=== PATIENT | female | born 2000 | race Caucasian/White ===

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

== ENCOUNTER 2022-02-18 20:29 | Emergency (ER) | payer MEDICAID ==
[~2022-02-18] VITALS: Ht 165 cm; Wt 63.5 kg
[~2022-02-18 20:29] MED LIST changes: +ACHD5005 PO; +BENZ78AE5 TP; +DOCU100C37 PO; +FERR325T18 PO; +IBUP-844 PO; +PREN1TAB19 PO
[2022-02-18 20:45] VITALS: BP 120/78
--- NOTE | 2022-02-18 21:18 | ED General ---
General Chief Complaint: General Problems/Pain Stated Complaint: CHEST PAINS Nursing Triage Note: PT AMB TO TRIAGE WITH C/O LIRIANO, BODY ACHES THAT STARTED WEDNESDAY AND TODAY SHE STATES HER RIBS AND CHEST ARE HURTING WORSE Source of Information: Patient Exam Limitations: No Limitations History of Present Illness Date Seen by Provider: Feb 18, 2022 Allergies and Home Medications Allergies Coded Allergies: No Known Drug Allergies (Unverified , 06/07/10) Patient Home Medication List Benzocaine/Menthol (Dermoplast Pain Relieving [place]) 78 Gm Aerosol, 56 EA TP UD PRN for PAIN- SEE INSTRUCTIONS Prescribed by: JOE HARO on 03/05/211800 Docusate Sodium (Docusate Sodium) 100 Mg Capsule, 100 MG PO BID PRN for CONSTIPATION-1ST LINE Prescribed by: JOE HARO on 03/05/211800 Ferrous Sulfate (Ferrous Sulfate) 325 Mg Tablet, 325 MG PO DAILY, (Reported) Entered as Reported by: MARTY BOYER on 03/05/21 08 Hydrocodone Bit/Acetaminophen (HYDROcodone/APAP 5 MG/325 MG TAB) 1 Tab Tab, 1 EA PO Q4H PRN for PAIN-MODERATE (5-7) Prescribed by: JOE HARO on 03/05/211801 Ibuprofen (Ibu) 600 Mg Tablet, 600 MG PO Q6HR Prescribed by: JOE HARO on 03/05/211800 Levothyroxine Sodium (Levothyroxine Sodium) 100 Mcg Tablet, (Reported) Entered as Reported by: MITCHELL FERNANDEZ on 11/25/16 0230 Ondansetron (Ondansetron Odt) 4 Mg Tab.rapdis, 4 MG PO Q8H PRN for NAUSEA/VOMITING Prescribed by: HAYDE LANE on 05/02/18 0517 Vit/Iron Fumarate/FA ( Vitamins Tablet) 1 Each Tablet, 1 EACH PO DAILY, (Reported) Entered as Reported by: MARTY BOYER on 03/05/21 0802 Review of Systems Review of Systems Expected Date of Delivery: Sep 12, 2022 Past Manmety-Yptdho-Lefbss Hx Patient Social History Tobacco Use?: No Use of E-Cig and/or Vaping dev: No Substance use?: No Alcohol Use?: No Pt feels they are or have been: No Immunizations Up To Date Tetanus Booster (TDap): Less than 5yrs PED Vaccines UTD: Yes Influenza Vaccine Up-to-Date: Yes; Up-to-Date Seasonal Allergies Seasonal Allergies: Yes Past Medical History Surgery/Hospitalization HX: HYPOTHYROID L ANKLE SURGERY Surgeries: No Respiratory: Yes Asthma Cardiac: No Neurological: No Expected Date of Delivery: Sep 12, 2022 Reproductive Disorders: No Genitourinary: No Gastrointestinal: No Musculoskeletal: Yes Scoliosis, Chronic Back Pain Endocrine: Yes Hypothyroidsim HEENT: No Cancer: No Psychosocial: No Integumentary: No Blood Disorders: No Physical Exam Vital Signs Vital Signs - First Documented 02/18/22 20:40 Temp 36.7 Pulse 70 Resp 14 B/P (MAP) 123/77 (92) Capillary Refill : Height, Weight, BMI Height: 5'3.00" Weight: 140lbs. oz. 63.437762rv; 23.00 BMI Method:Stated Procedures/Interventions Suture Size: 4-0 Progress/Results/Core Measures Suspected Sepsis SIRS Temperature: Pulse: 70 Respiratory Rate: 14 Laboratory Tests 02/18/22 22:00: White Blood Count 5.5 Blood Pressure 123 /77 Mean: 92 Laboratory Tests 02/18/22 22:00: Creatinine 0.67, Platelet Count 98L, Total Bilirubin 0.3 Results/Orders Lab Results Laboratory Tests Test 02/18/22 21:12 02/18/22 21:50 02/18/22 22:00 Range/Units Influenza Type A (RT-PCR) Not Detected Not Detecte Influenza Type B (RT-PCR) Not Detected Not Detecte SARS-CoV-2 RNA (RT-PCR) Not Detected Not Detecte Urine Color YELLOW Urine Clarity CLEAR Urine pH 6.0 5-9 Urine Specific [place] >=1.030 1.016-1.022 Urine Protein NEGATIVE NEGATIVE Urine Glucose (UA) NEGATIVE NEGATIVE Urine Ketones NEGATIVE NEGATIVE Urine Nitrite NEGATIVE NEGATIVE Urine Bilirubin NEGATIVE NEGATIVE Urine Urobilinogen 0.2 < = 1.0 MG/DL Urine Leukocyte Esterase NEGATIVE NEGATIVE Urine RBC (Auto) NEGATIVE NEGATIVE Urine RBC RARE /HPF Urine WBC NONE /HPF Urine Squamous Epithelial Cells 0-2 /HPF Urine Crystals NONE /LPF Urine Bacteria TRACE /HPF Urine Casts NONE /LPF Urine Mucus SMALL H /LPF Urine Culture Indicated NO White Blood Count 5.5 4.3-11.0 10^3/uL Red Blood Count 4.09 3.80-5.11 10^6/uL Hemoglobin 12.1 11.5-16.0 g/dL Hematocrit 36 35-52 % Mean Corpuscular Volume 87 80-99 fL Mean Corpuscular Hemoglobin 30 25-34 pg Mean Corpuscular Hemoglobin Concent 34 32-36 g/dL Red Cell Distribution Width 12.5 10.0-14.5 % Platelet Count 98 L 130-400 10^3/uL Mean Platelet Volume 10.6 9.0-12.2 fL Immature Granulocyte % (Auto) 0 % Neutrophils (%) (Auto) 58 42-75 % Lymphocytes (%) (Auto) 31 12-44 % Monocytes (%) (Auto) 9 0-12 % Eosinophils (%) (Auto) 1 0-10 % Basophils (%) (Auto) 1 0-10 % Neutrophils # (Auto) 3.2 1.8-7.8 10^3/uL Lymphocytes # (Auto) 1.7 1.0-4.0 10^3/uL Monocytes # (Auto) 0.5 0.0-1.0 10^3/uL Eosinophils # (Auto) 0.1 0.0-0.3 10^3/uL Basophils # (Auto) 0.0 0.0-0.1 10^3/uL Immature Granulocyte # (Auto) 0.0 0.0-0.1 10^3/uL Percent Immature Platelet Fraction 9.5 H 0.0-7.6 % Sodium Level 135 135-145 MMOL/L Potassium Level 3.8 3.6-5.0 MMOL/L Chloride Level 104 98-107 MMOL/L Carbon Dioxide Level 18 L 21-32 MMOL/L Anion Gap 13 5-14 MMOL/L Blood Urea Nitrogen 11 7-18 MG/DL Creatinine 0.67 0.60-1.30 MG/DL Estimat Glomerular Filtration Rate 129 BUN/Creatinine Ratio 16 Glucose Level 80 70-105 MG/DL Calcium Level 9.1 8.5-10.1 MG/DL Corrected Calcium 9.0 8.5-10.1 MG/DL Total Bilirubin 0.3 0.1-1.0 MG/DL Aspartate Amino Transf (AST/SGOT) 16 5-34 U/L Alanine Aminotransferase (ALT/SGPT) 12 0-55 U/L Alkaline Phosphatase 43 40-136 U/L Troponin I < 0.028 <0.028 NG/ML Total Protein 6.8 6.4-8.2 GM/DL Albumin 4.1 3.2-4.5 GM/DL My Orders Orders - ILIANA LUNDBERG SUPERVISOR PLEATING Covid 19 Inhouse Test (02/18/22 21:06) Influenza A And B By Pcr (02/18/22 21:06) Ua Culture If Indicated (02/18/22 21:33) Ekg Tracing (02/18/22 21:34) Cbc With Automated Diff (02/18/22 21:54) Comprehensive Metabolic Panel (02/18/22 21:54) Troponin I [place] (02/18/22 21:54) Vital Signs/I&O 02/18/22 20:40 Temp 36.7 Pulse 70 Resp 14 B/P (MAP) 123/77 (92) Capillary Refill : Blood Pressure Mean: 92 Departure Impression Primary Impression: Body aches Disposition: 01 HOME, SELF-CARE Condition: Improved Departure-Patient Inst. Decision time for Depature: 22:51 Referrals: NO,LOCAL PHYSICIAN (PCP) Primary Care Physician VIOLETA CONNOR (Family) Primary Care Physician Patient Instructions: Muscle Strain Add. Discharge Instructions: Plan: 1. Keep follow-up with your MANUFACTURING SUPERVISOR as previously directed. 2. If you have persistent symptoms you can follow-up with your primary care provider, you need to call to schedule an appointment. 3. Return to the ER if you have any new, concerning, worsening symptoms. All discharge instructions reviewed with patient and/or family. Voiced understanding. ILIANA LUNDBERG APRN Feb 18, 2022 21:17
[2022-02-18 22:00] LABS: BILIRUBIN,URINE NEGATIVE (NEGATIVE); CLARITY,URINE CLEAR; COLOR,URINE YELLOW; GLUCOSE, URINE (UA) NEGATIVE (NEGATIVE); KETONES,URINE NEGATIVE (NEGATIVE); LEUKOCYTE ESTERASE ,URINE NEGATIVE (NEGATIVE); NITRITE,URINE NEGATIVE (NEGATIVE); PROTEIN,URINE NEGATIVE (NEGATIVE)
[2022-02-18 22:10] LABS: BASOPHILS % (AUTO) 1 % (0-10); EOSINOPHILS # (AUTO) 0.1 10^3/uL (0.0-0.3); EOSINOPHILS % (AUTO) 1 % (0-10); HEMATOCRIT 36 % (35-52); HEMOGLOBIN 12.1 g/dL (11.5-16.0); LYMPHOCYTES # (AUTO) 1.7 10^3/uL (1.0-4.0); LYMPHOCYTES % (AUTO) 31 % (12-44); MEAN CORPUSCULAR HEMOGLOBIN 30 pg (25-34); MEAN CORPUSCULAR HGB CONC 34 g/dL (32-36); MEAN CORPUSCULAR VOLUME 87 fL (80-99); MEAN PLATELET VOLUME 10.6 fL (9.0-12.2); MONOCYTES # (AUTO) 0.5 10^3/uL (0.0-1.0); MONOCYTES % (AUTO) 9 % (0-12); NEUTROPHILS # (AUTO) 3.2 10^3/uL (1.8-7.8); NEUTROPHILS % (AUTO) 58 % (42-75); PLATELET COUNT 98 10^3/uL (130-400); WHITE BLOOD COUNT 5.5 10^3/uL (4.3-11.0)
[2022-02-18 22:11] LABS: BACTERIA,URINE TRACE /HPF; RBC,URINE RARE /HPF
[2022-02-18 22:12] LABS: SQUAMOUS EPITHELIAL CELL,UR 0-2 /HPF
[2022-02-18 22:20] LABS: ALBUMIN 4.1 GM/DL (3.2-4.5); CHLORIDE 104 MMOL/L (98-107); POTASSIUM 3.8 MMOL/L (3.6-5.0); SODIUM 135 MMOL/L (135-145)
[2022-02-18 22:21] LABS: CALCIUM 9.1 MG/DL (8.5-10.1)
[2022-02-18 22:22] LABS: GLUCOSE 80 MG/DL (70-105); TOTAL PROTEIN 6.8 GM/DL (6.4-8.2)
[2022-02-18 22:23] LABS: CARBON DIOXIDE 18 MMOL/L (21-32)
[2022-02-18 22:24] LABS: BILIRUBIN,TOTAL 0.3 MG/DL (0.1-1.0)
[2022-02-18 22:25] LABS: ALKALINE PHOSPHATASE 43 U/L (40-136)
[2022-02-18 22:26] LABS: CREATININE SERUM 0.67 MG/DL (0.60-1.30); GFR ESTIMATED 129
[2022-02-18 22:27] LABS: BUN/CREATININE RATIO 16
[2022-02-18 22:29] LABS: ALANINE AMINOTRANSFERASE 12 U/L (0-55)
== END 2022-02-18 20:45 | disposition home or self-care (01) ==
LOC: EDUNIT# 20:29 → ER 20:31
DX: R51.9 Headache, unspecified (principal); R07.9 Chest pain, unspecified; R07.81 Pleurodynia; Z20.822 Contact with and (suspected) exposure to COVID-19; Z28.310 Unvaccinated for COVID-19
CPT/HCPCS: 36415; 80053; 81000; 84484; 85025; 87636; 93005

== ENCOUNTER → 2022-03-12 | Outpatient (CLI) | payer BC, MEDICAID ==
[~2022-03-12] VITALS: Ht 165.1 cm; Wt 63.6 kg
[~2022-03-12] MED LIST changes: +IBUP-1773 PO
== END | disposition home or self-care (01) ==
LOC: PREOP 15:42
PROVIDERS: ATTEND Obstetrics & Gynecology
DX: Z01.818 Encounter for other preprocedural examination (principal)

== ENCOUNTER 2022-03-13 09:57 | Day surgery (SDC) | payer BC, MEDICAID ==
[2022-03-13] VITALS (10 sets, daily range): BP systolic 96–126; BP diastolic 58–86
[~2022-03-13 09:57] MED LIST changes: -IBUP-1773 PO
[2022-03-13 10:43] LABS: BASOPHILS % (AUTO) 0 % (0-10); EOSINOPHILS # (AUTO) 0.1 10^3/uL (0.0-0.3); EOSINOPHILS % (AUTO) 2 % (0-10); HEMATOCRIT 38 % (35-52); LYMPHOCYTES # (AUTO) 1.5 10^3/uL (1.0-4.0); LYMPHOCYTES % (AUTO) 24 % (12-44); MEAN CORPUSCULAR HEMOGLOBIN 29 pg (25-34); MEAN CORPUSCULAR HGB CONC 34 g/dL (32-36); MEAN CORPUSCULAR VOLUME 87 fL (80-99); MONOCYTES # (AUTO) 0.5 10^3/uL (0.0-1.0); MONOCYTES % (AUTO) 8 % (0-12); NEUTROPHILS # (AUTO) 4.1 10^3/uL (1.8-7.8); NEUTROPHILS % (AUTO) 66 % (42-75); PLATELET COUNT 197 10^3/uL (130-400); WHITE BLOOD COUNT 6.3 10^3/uL (4.3-11.0)
[2022-03-13] MEDS ORDERED: proPOfol 200 MG/20 ML (DIPRIVAN) VIAL IV ONE (10:57)
[2022-03-13] MEDS ORDERED: ONDANSETRON 4 MG/2 ML (SDV) Z0FRAN ONE (10:57)
[2022-03-13] MEDS ORDERED: MIDAZOLAM 2 MG/2 ML (VERSED) VIAL ONE (10:57)
[2022-03-13] MEDS ORDERED: SEVOFLURANE (ULTANE) 15 ML INHAL SOLN ONE ×2 (10:57→12:15)
[2022-03-13] MEDS ORDERED: LIDOCAINE PF 2% 5 ML (XYLOCAINE) VIAL ONE (10:57)
[2022-03-13] MEDS ORDERED: fentaNYL INJ 100 MCG/2 ML AMP ONE (10:57)
--- NOTE | 2022-03-13 11:28 | Progress Note-Pre Operative ---
Pre-Operative Progress Note Date of Available H&P: Mar 13, 2022 Date H&P Reviewed: Mar 13, 2022 Time H&P Reviewed: 11:20 History & Physical: H&P Reviewed, Patient Examed, No changes noted Pre-Operative Diagnosis: 11 week missed JOE Ye DO Mar 13, 2022 11:28
[2022-03-13] MEDS ORDERED: D5 LR IV SOLUTION 1,000 ML IV SCH (11:30)
[2022-03-13] MEDS ORDERED: KETOROLAC 30 MG/ML VIAL IVP ONE (11:30)
[2022-03-13] MEDS ORDERED: ONDANSETRON 4 MG/2 ML (SDV) Z0FRAN IVP PRN ×2 (11:30→12:30)
[2022-03-13] MEDS ORDERED: HYDROcodone/APAP 5 MG/325 MG (LORTAB) TAB PO PRN (11:30)
[2022-03-13] MEDS ORDERED: ACHD5005 PO (11:31)
[2022-03-13] MEDS ORDERED: IBUP-1773 PO (11:31)
[2022-03-13] MEDS ORDERED: METHYLERGONOVINE 0.2 MG/ML (METHERGINE) AMP ONE (12:02)
[2022-03-13] MEDS ORDERED: PHENYLEPHRINE 100 MCG/ML 10 ML (ANESTHESIA) SYR ONE (12:12)
[2022-03-13] MEDS ORDERED: KETOROLAC 30 MG/ML VIAL ONE (12:15)
[2022-03-13] MEDS ORDERED: HYDROmorphone 2 MG/ML VIAL (DILAUDID) IV ONE (12:30)
[2022-03-13] MEDS ORDERED: METHYLERGONOVINE 0.2 MG/ML (METHERGINE) AMP IM ONE (12:33)
[2022-03-13] MEDS ORDERED: LACTATED RINGERS 1,000 ML IV ONE (12:36)
--- NOTE | 2022-03-13 13:34 | Anesthesia-General Post-Op ---
General Patient Condition Mental Status/LOC: Same as Preop Cardiovascular: Satisfactory Nausea/Vomiting: Absent Respiratory: Satisfactory Pain: Controlled Complications: Absent Post Op Complications Complications None Follow Up Care/Instructions Patient Instructions None needed. Anesthesia/Patient Condition Patient Condition Patient is doing well, no complaints, stable vital signs, no apparent adverse anesthesia problems. No complications reported per nursing. D/C home per [facility] Criteria: Yes CRISTIANE ALLEN CRNA Mar 13, 2022 13:34
--- NOTE | 2022-03-14 02:37 | OPERATIVE REPORT ---
DATE OF SERVICE: 03/13/2022 PREOPERATIVE DIAGNOSIS: A 21-year-old female with missed . POSTOPERATIVE DIAGNOSIS: A 21-year-old female with missed . PROCEDURE: Suction D and C. SURGEON: Joe Haro DO ANESTHESIA: LMA general. ESTIMATED BLOOD LOSS: 1200 mL URINE OUTPUT: 50 mL drained at the start of the procedure. FLUIDS: 1 liter of lactated Ringer solution. FINDINGS: Grossly normal-appearing external female genitalia, normal-appearing cervix. Copious amount of products of conception. SPECIMEN SENT: Products of conception. INDICATIONS FOR PROCEDURE: This is a 21-year-old female patient who was sought care in my office yesterday for visit. It was deemed that there was no cardiac activity on ultrasound. Due to this, we proceeded with the option of spontaneous miscarriage at home versus proceeding with suction D and C. The patient wished to proceed with something electively as soon as possible. The risks of the procedure were discussed with the patient in detail and after all of her questions were answered, consent was obtained. The patient was taken to the operating room. OPERATIVE REPORT IN DETAIL: Once in the operating room, general anesthesia was administered and found to be adequate. She was placed in the dorsal lithotomy position, prepped and draped in normal sterile fashion. A timeout was performed. The bladder was drained using straight catheterization. Weighted speculum inserted in the patient's vagina. Right angle retractor was used to visualize the cervix and it was grasped at 12 o'clock position using a single tooth tenaculum. I then gently sounded the uterine cavity was found to be approximately 11 cm. I then gently dilated the cervix using Hegar dilators to maximum dilatation of 12 mm, at which point I selected a #11 flexible rigid suction curette, advanced it into the uterus and applied Paramjit suction to a maximum suction of 70 mmHg and methodically by rotation cleared the endometrial cavity of all products of conception. This was done on several different passes. Finally, a gentle sharp curettage was performed and 0.2 mg of Methergine was administered IM to help decrease blood loss. The bleeding slowly slowed down after a fourth and final pass with the suction curette, after which there was little to no active bleeding noted from the cervix. There are two spots on her cervix from the single tooth tenaculum that are made hemostatic using silver nitrate. I then removed all the other instruments from the patient's vagina. The patient tolerated the procedure well and was sent to recovery area in stable condition. Lap and sponge counts were correct at the end of the procedure. Instrument counts were correct as well. Job ID: [id number] DocumentID: [id number] Dictated Date: 03/13/2022 13:42:55 Publications Editor Date: 03/14/2022 02:36:00 Dictated By: JOE HARO DO
== END 2022-03-13 13:56 | disposition home or self-care (01) ==
LOC: SDC 09:57
PROVIDERS: ATTEND Obstetrics & Gynecology
DX: O02.1 Missed abortion (principal); Z28.310 Unvaccinated for COVID-19; Z3A.13 13 weeks gestation of pregnancy
CPT/HCPCS: 36415; 85025; 86850; 86900; 86901; 87081

== ENCOUNTER 2022-12-31 22:13 | Emergency (ER) | payer MEDICAID ==
[~2022-12-31] VITALS: Ht 162.5 cm; Wt 79.5 kg
[~2022-12-31 22:13] MED LIST changes: +IBUP-1773 PO
--- NOTE | 2022-12-31 22:23 | ED EENT ---
History of Present Illness General Stated Complaint: NOSE BLEED 35 WKS Source: patient History of Present Illness Date Seen by Provider: Dec 31, 2022 Time Seen by Provider: 22:22 Initial Comments PT ARRIVES VIA POV FROM HOME PT HAS HAD 3 NOSEBLEEDS TODAY SINCE 1529--IS NOT BLEEDING NOW. NO INJURY NO PAIN TO NOSE NO NASAL CONGESTION OR DRAINAGE, NO ALLERGY/SINUS SYMPTOMS, NO RECENT COLD SYMPTOMS NO DIZZINESS OR SYNCOPE PT IS NOT ON ASPIRIN OR BLOOD THINNERS NO HISTORY OF BLEEDING DISORDERS NO BLEEDING FROM OTHER SITES OR EXCESSIVE BRUISING OR RASH OR PETECHIAE NO HISTORY OF HTN NO CHRONIC MEDICAL PROBLEMS SHE OCCASIONALLY GETS NOSEBLEEDS, THE LAST ONE WAS ABOUT A YEAR AGO. PT IS 37 WEEKS . AB 1 NO PROBLEMS WITH THIS . HAD ROUTINE APPOINTMENT WITH DR. HARO 1 1/2 WEEKS AGO, NEXT APPOINTMENT IS Wednesday01/04/23 PCP: DRE CONNOR IN [place] [facility]: DR. HARO Allergies and Home Medications Allergies Coded Allergies: No Known Drug Allergies (Unverified , 06/07/10) Patient Home Medication List Home Medication List Reviewed: Yes Fluticasone Propionate (Flonase Allergy Relief) 50 Mcg/Actuation [place].susp, 2 SPRAY NS DAILY Prescribed by: CHITO SCHMITT on 12/31/22 2318 Hydrocodone/Acetaminophen (Hydrocodone-Acetamin 5-325 mg) 5 Mg-325 Mg Tablet, 1 TAB PO Q4H PRN for PAIN-MODERATE (5-7) Prescribed by: JOE HARO on 03/13/22 1131 Ibuprofen (Ibuprofen) 600 Mg Tablet, 600 MG PO Q6H Prescribed by: JOE HARO on 03/13/22 1131 Levothyroxine Sodium (Levothyroxine Sodium) 100 Mcg Tablet, (Reported) Entered as Reported by: MITCHELL FERNANDEZ on 11/25/16 0230 Vit/Iron Fumarate/FA ( Vitamins Tablet) 1 Each Tablet, 1 EACH PO DAILY, (Reported) Entered as Reported by: MARTY BOYER on 03/05/21 0802 Review of Systems Review of Systems Constitutional: no symptoms reported Eyes: No Symptoms Reported Ears: No Symptoms Reported Nose: see HPI Mouth: no symptoms reported Throat: no symptoms reported Respiratory: no symptoms reported Cardiovascular: no symptoms reported Gastrointestinal: no symptoms reported : Yes Musculoskeletal: no symptoms reported Skin: no symptoms reported Neurological: No Symptoms Reported Hematologic/Lymphatic: No Symptoms Reported Immunological/Allergic: no symptoms reported Past Onefidn-Wgoauz-Nzdujc Hx Immunizations Up To Date Tetanus Booster (TDap): Unknown PED Vaccines UTD: Yes Seasonal Allergies Seasonal Allergies: Yes Past Medical History Surgery/Hospitalization HX: HYPOTHYROID L ANKLE SURGERY Surgeries: No (LEFT ANKLE) Respiratory: Yes Asthma Currently Using CPAP: No Currently Using BIPAP: No Cardiac: No Neurological: No Reproductive Disorders: No Genitourinary: No Gastrointestinal: No Musculoskeletal: Yes Scoliosis, Chronic Back Pain Endocrine: Yes Hypothyroidsim HEENT: No Cancer: No Psychosocial: No Integumentary: No Blood Disorders: No Physical Exam Vital Signs Vital Signs - First Documented 12/31/22 12/31/22 22:28 23:20 Temp 36.9 Pulse 80 Resp 18 B/P (MAP) 127/90 (102) Pulse Ox 99 O2 Delivery Room Air O2 Flow Rate 99.00 Height, Weight, BMI Height: 5'3.00" Weight: 140lbs. oz. 63.692528kp; 23.33 BMI Method:Stated General Appearance: WD/WN, no apparent distress Eyes: bilateral eye normal inspection Nose: other (NASAL MUCOSAL INFLAMMATION, BUT NO BLOOD IN NARES, NO SITE OF BLEEDING. NO BLOOD IN POSTERIOR PHARYNX. NO SINUS TENDERNESSS. ) Mouth/Throat: normal mouth inspection, pharynx normal Neck: non-tender, full range of motion, supple, normal inspection; No lymphadenopathy (R), No lymphadenopathy (L) Cardiovascular: regular rate, rhythm, no murmur Respiratory: normal breath sounds, no respiratory distress, no accessory muscle use Gastrointestinal: non tender, other (GRAVID UTERUS. ) Neurologic/Psychiatric: no motor/sensory deficits, alert, normal mood/affect, oriented x 3 Skin: normal color, warm/dry Procedures/Interventions Suture Size: 4-0 Progress/Results/Core Measures Results/Orders Lab Results Laboratory Tests Test 12/31/22 22:45 Range/Units White Blood Count 12.9 H 4.3-11.0 10^3/uL Red Blood Count 4.04 3.80-5.11 10^6/uL Hemoglobin 12.8 11.5-16.0 g/dL Hematocrit 37 35-52 % Mean Corpuscular Volume 92 80-99 fL Mean Corpuscular Hemoglobin 32 25-34 pg Mean Corpuscular Hemoglobin Concent 35 32-36 g/dL Red Cell Distribution Width 11.8 10.0-14.5 % Platelet Count 146 130-400 10^3/uL Mean Platelet Volume 9.0 9.0-12.2 fL Immature Granulocyte % (Auto) 1 % Neutrophils (%) (Auto) 73 42-75 % Lymphocytes (%) (Auto) 17 12-44 % Monocytes (%) (Auto) 8 0-12 % Eosinophils (%) (Auto) 1 0-10 % Basophils (%) (Auto) 0 0-10 % Neutrophils # (Auto) 9.5 H 1.8-7.8 10^3/uL Lymphocytes # (Auto) 2.1 1.0-4.0 10^3/uL Monocytes # (Auto) 1.1 H 0.0-1.0 10^3/uL Eosinophils # (Auto) 0.1 0.0-0.3 10^3/uL Basophils # (Auto) 0.1 0.0-0.1 10^3/uL Immature Granulocyte # (Auto) 0.1 0.0-0.1 10^3/uL Percent Immature Platelet Fraction 1.9 0.0-7.6 % Prothrombin Time 13.2 12.2-14.7 SEC INR Comment 1.0 0.8-1.4 Activated Partial Thromboplast Time 28 24-35 SEC Sodium Level 137 135-145 MMOL/L Potassium Level 3.7 3.6-5.0 MMOL/L Chloride Level 107 98-107 MMOL/L Carbon Dioxide Level 20 L 21-32 MMOL/L Anion Gap 10 5-14 MMOL/L Blood Urea Nitrogen 8 7-18 MG/DL Creatinine 0.67 0.60-1.30 MG/DL Estimat Glomerular Filtration Rate 128 BUN/Creatinine Ratio 12 Glucose Level 99 70-105 MG/DL Calcium Level 8.9 8.5-10.1 MG/DL Corrected Calcium 9.3 8.5-10.1 MG/DL Total Bilirubin 0.3 0.1-1.0 MG/DL Aspartate Amino Transf (AST/SGOT) 14 5-34 U/L Alanine Aminotransferase (ALT/SGPT) 7 0-55 U/L Alkaline Phosphatase 112 40-136 U/L Total Protein 6.4 6.4-8.2 GM/DL Albumin 3.5 3.2-4.5 GM/DL My Orders Orders - KESHIACHITO Johanne DO Cbc And Automated Diff (12/31/22 22:28) Comprehensive Metabolic Panel (12/31/22 22:28) Protime With Inr (12/31/22 22:28) Partial Thromboplastin Time (12/31/22 22:28) Heart Tones (12/31/22 22:28) Vital Signs/I&O 12/31/22 12/31/22 12/31/22 22:28 23:20 23:22 Temp 36.9 36.9 36.8 Pulse 80 66 64 Resp 18 18 18 B/P (MAP) 127/90 (102) 104/53 (70) 104/53 Pulse Ox 99 100 O2 Delivery Room Air Room Air Room Air O2 Flow Rate 99.00 Progress Progress Note : Progress Note VITALS: TEMP 36.9=98.4, HR 80, RR 18, BP 127/90, O2 SAT 99% ON ROOM AIR LABS: -CBC NORMAL WITH HGB 12.8, PLT 146,000 -CMP NORMAL -PT/PTT/INR NORMAL NO BLEEDING FROM NOSE AT ANY TIME NO SYMPTOMS OF ANY KIND VITALS STABLE BP 104/53 AT DISMISSAL DISCUSSED TEST RESULTS, ANTICIPATED COURSE, SYMPTOMATIC TREATMENT, MEDICATION, NEED FOR FOLLOW UP--REFERRED TO ENT, DR. CHAMORRO, AND RETURN PRECAUTIONS REVIEWED PRIOR RECORDS, INCLUDING ER VISITS, ADMITS/H&P'S/DISCHARGE SUMMARIES, TESTS/PROCEDURES Departure Impression Primary Impression: Epistaxis Disposition: 01 HOME, SELF-CARE Condition: Stable Departure-Patient Inst. Decision time for Depature: 23:17 Referrals: JOE CHAMORRO MD, KIMBERLY J ARNP (PCP) Primary Care Physician Patient Instructions: Nosebleeds ED Add. Discharge Instructions: DO NOT RUB OR PICK AT YOUR NOSE HUMIDIFY THE AIR IN YOUR HOME FOLLOW UP WITH DR. CHAMORRO, ENT, FOR FURTHER CARE--CALL IN THE MORNING TO SCHEDULE AN APPOINTMENT Scripts Fluticasone Propionate (Flonase Allergy Relief) 50 Mcg/Actuation [place].susp 2 SPRAY NS DAILY, #1 EACH 2 SPRAYS PER NOSTRIL DAILY X 2 DAYS THEN 1 SPRAY DAILY Prov: CHITO SCHMITT DO 12/31/22 CHITO SCHMITT DO Dec 31, 2022 22:23
[2022-12-31 22:53] LABS: BASOPHILS # (AUTO) 0.1 10^3/uL (0.0-0.1); BASOPHILS % (AUTO) 0 % (0-10); EOSINOPHILS % (AUTO) 1 % (0-10)
[2022-12-31 22:55] LABS: EOSINOPHILS # (AUTO) 0.1 10^3/uL (0.0-0.3); HEMATOCRIT 37 % (35-52); HEMOGLOBIN 12.8 g/dL (11.5-16.0); LYMPHOCYTES # (AUTO) 2.1 10^3/uL (1.0-4.0); LYMPHOCYTES % (AUTO) 17 % (12-44); MEAN CORPUSCULAR HEMOGLOBIN 32 pg (25-34); MEAN CORPUSCULAR HGB CONC 35 g/dL (32-36); MEAN CORPUSCULAR VOLUME 92 fL (80-99); MONOCYTES # (AUTO) 1.1 10^3/uL (0.0-1.0); MONOCYTES % (AUTO) 8 % (0-12); NEUTROPHILS # (AUTO) 9.5 10^3/uL (1.8-7.8); NEUTROPHILS % (AUTO) 73 % (42-75); PLATELET COUNT 146 10^3/uL (130-400); WHITE BLOOD COUNT 12.9 10^3/uL (4.3-11.0)
[2022-12-31 23:04] LABS: PROTHROMBIN TIME PATIENT 13.2 SEC (12.2-14.7)
[2022-12-31 23:07] LABS: ALBUMIN 3.5 GM/DL (3.2-4.5); POTASSIUM 3.7 MMOL/L (3.6-5.0)
[2022-12-31 23:09] LABS: CALCIUM 8.9 MG/DL (8.5-10.1)
[2022-12-31 23:10] LABS: TOTAL PROTEIN 6.4 GM/DL (6.4-8.2)
[2022-12-31 23:12] LABS: BILIRUBIN,TOTAL 0.3 MG/DL (0.1-1.0)
[2022-12-31 23:13] LABS: CREATININE SERUM 0.67 MG/DL (0.60-1.30)
[2022-12-31] MEDS ORDERED: FLUT9.9S NS (23:18)
[2022-12-31 23:22] VITALS: BP 104/53
== END 2022-12-31 22:25 | disposition home or self-care (01) ==
LOC: EDUNIT# 22:13 → ER 22:16
DX: O99.891 Other specified diseases and conditions complicating pregnancy (principal); R04.0 Epistaxis; Z3A.35 35 weeks gestation of pregnancy
CPT/HCPCS: 36415; 80053; 85025; 85610; 85730

== ENCOUNTER 2023-02-04 06:00 | Inpatient (IN) | payer MEDICAID ==
[2023-02-04] VITALS (48 sets, daily range): BP systolic 101–144; BP diastolic 55–89
[~2023-02-04] VITALS: Ht 162.6 cm; Wt 81.1 kg
[~2023-02-04 06:00] MED LIST changes: +FLUT9.9S NS
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
--- OUTSIDE RECORDS SUMMARY | 2023-02-04 06:47 | XMS REPORT ---
Author Author Page [facility] Address Unknown Phone Unavailable Care Team Providers [employer] Technology [employer] Architect Name Role Phone REYNALDO MANZANO Unavailable PROBLEMS Type Condition ICD9-CM Code JPE22-KT Code Onset Dates Condition Status W/U Status Risk SNOMED Code Notes Problem Acquired hypothyroidis m E03.9 confirmed 403776621 Problem Juvenile idiopathic scoliosis of thoracolumbar region M41.115 confirmed 695005471 Problem Family history of early CAD Z82.49 confirmed 756391785 Problem Migraine with aura and without status migrainosus, not intractable G43.109 confirmed 7751404 Problem Irritable bowel syndrome with both constipation and diarrhea K58.2 confirmed 46480303 Problem 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 [address] [facility] [id number] [place] [address] Dec, REYNALDO MANZANO IMMUNIZATIONS Vaccine Route Administration Date Status PRIVATE DTAP (INFANRIX) Unknown 2002 Admi nistered FLULAVAL QUAD (6 MO AND UP) 2017 IM Intramuscular Dec 09, 2016 Administered PRIVATE FLULAVAL QUAD 0.5ML (6 MO AND UP) 2018 IM Intramuscular Jan 04, 2018 Administered PRIVATE GARDASIL 9 (HPV) IM Intramuscular Oct 14, 2015 Administered PRIVATE DTAP (INFANRIX) Unknown Oct 12, 2006 Admi nistered PRIVATE DTAP (INFANRIX) Unknown Oct 25, 2003 Admi nistered PRIVATE DTAP (INFANRIX) Unknown Apr 02, 2003 Admi nistered PRIVATE DTAP (INFANRIX) Unknown Feb 01, 2003 Admi nistered PRIVATE TDAP (BOOSTRIX) Unknown Oct 18, 2014 Admi nistered PRIVATE HEP A (PEDS/ADOLESCE NT-2 DOSE) Unknown Oct 22, 2008 Administered VFC BEXSERO (MEN B) IM Intramuscular Feb 01, 2019 Admi nistered PRIVATE POLIO (IPV) Unknown Apr 12, 2003 Administ ered PRIVATE POLIO (IPV) Unknown Oct 12, 2006 Administ ered PRIVATE HEP A (PEDS/ADOLESCE NT-2 DOSE) Unknown Oct 28, 2007 Administered Influenza, seasonal, injecta ble (split), for 3 yrs and up Unknown Dec 23, 2009 Pending hib (history) Unknown 2002 Administered hib (history) Unknown Feb 01, 2003 Administered hib (history) Unknown Apr 12, 2003 Administered hib (history) Unknown Oct 25, 2003 Administered VFC FLULAVAL QUAD 0.5ML (6 M O AND UP) 2018 IM Intramuscular Feb 01, 2019 Administered PRIVATE VARICELLA Unknown Oct 12, 2006 Administer ed PRIVATE MMR Unknown Oct 12, 2006 Administered PRIVATE MMR Unknown Oct 25, 2003 Administered PRIVATE HEP B (PEDS/ADOLESCE NT, 3-DOSE) Unknown Apr 12, 2003 Administered PRIVATE BEXSERO (MEN B) IM Intramuscular Oct 27, 2018 Administered PRIVATE POLIO (IPV) Unknown Feb 01, 2003 Administ ered PRIVATE MENINGOCOCCAL (MENVEO) IM Intramuscular Sep Administered PRIVATE POLIO (IPV) Unknown 2002 Administ ered PRIVATE MENINGOCOCCAL (MENVEO) Unknown Oct 18 15 Administered PRIVATE VARICELLA Unknown Oct 28, 2007 Administer ed PRIVATE GARDASIL 9 (HPV) IM Intramuscular September 28 7 Administered PRIVATE HEP B (PEDS/ADOLESCE NT, 3-DOSE) Unknown Feb 01, 2003 Administered PRIVATE HEP B (PEDS/ADOLESCE NT, 3-DOSE) Unknown 2002 Administered PRIVATE HEP B (PEDS/ADOLESCE NT, 3-DOSE) Unknown 2002 Administered SOCIAL HISTORY Sex Assigned At : Social [...] a day Sep, Not-Taking REASON FOR VISIT Establish Care Appt Due MEDICAL (GENERAL) HISTORY Type Description Date Medical [...] Coverage End Date Subscriber Number Group Number [facility] [address] [facility] [phone] Francisco Merlos Self - patient is the insured 7 [id number] [facility] [address] [facility] [address] [facility] [place] [address] Francisco Merlos Self - patient is the insured [id number]
[2023-02-04] MEDS ORDERED: D5 LR 1,000 ML IV SOLN 1,000 ML IV SCH (07:30)
[2023-02-04] MEDS ORDERED: LIDOCAINE 2% w/EPI 1:200,000 20 ML VIAL INJ PRN (07:30)
[2023-02-04] MEDS ORDERED: OXYTOCIN DRIP PRE-MIX 500 ML IV SCH ×2 (07:30)
[2023-02-04] MEDS ORDERED: LACTATED RINGERS 1,000 ML 500 ML IV PRN (07:30)
[2023-02-04] MEDS ORDERED: MINERAL OIL 30 ML UDC TOP PRN (07:30)
--- NOTE | 2023-02-04 07:34 | History & Physical-OB ---
OB - Chief Complaint & HPI Date/Time Date of Admission: Date of Admission: Feb 04, 2023 at 06:33 Date seen by a Provider: Feb 04, 2023 Time Seen by a Provider: 07:30 Chief Complaint/History OB-Reason for Admission/Chief: Induction of Labor Hx : 3 Hx Para: 1 Expected Date of Delivery: Feb 07, 2023 Gestational Age in Weeks: 39 Gestational Age in Days: 4 Admission Nurse Assessment Rev: Yes History of Labs GBS neg Allergies and Home Medications Allergies Coded Allergies: No Known Drug Allergies (Unverified , 06/07/10) Patient Home Medication List Home Medication List Reviewed: Yes Levothyroxine Sodium (Levothyroxine Sodium) 100 Mcg Tablet, (Reported) Entered as Reported by: MITCHELL FERNANDEZ on 11/25/16 0230 Last Action: Last Taken Edited Vit/Iron Fumarate/FA ( Vitamins Tablet) 1 Each Tablet, 1 EACH PO DAILY, (Reported) Entered as Reported by: MARTY BOYER on 03/05/21 0802 Last Action: Last Taken Edited Discontinued Medications Fluticasone Propionate (Flonase Allergy Relief) 50 Mcg/Actuation [place].susp, 2 SPRAY NS DAILY Discontinued Reason: No Longer Taking Prescribed by: CHITO SCHMITT on 12/31/22 2318 Last Action: Discontinued Hydrocodone/Acetaminophen (Hydrocodone-Acetamin 5-325 mg) 5 Mg-325 Mg Tablet, 1 TAB PO Q4H PRN for PAIN-MODERATE (5-7) Discontinued Reason: No Longer Taking Prescribed by: JOE HARO on 03/13/22 1131 Last Action: Discontinued Ibuprofen (Ibuprofen) 600 Mg Tablet, 600 MG PO Q6H Discontinued Reason: No Longer Taking Prescribed by: JOE HARO on 03/13/22 1131 Last Action: Discontinued OB - History Hx of Present Care: Yes Ultrasounds: Normal mid trimester US Obstetrical Complications: None Medical Complications: None Delivery History Hx Blood Disorders: No Patient Past Medical History n/a Social History/Family History 2nd Hand Smoke Exposure: No Immunizations First/Initial COVID19 Vaccine: N/A Tetanus Booster (TDap): Unknown OB - Admission Exam Physical Exam HEENT: NCAT Heart: Rhythm Normal Lungs: Clear Abdomen: Gravid Extremities: Normal Reflexes: Normal Cervical Dilatation: 3cm Effacement: 75% Station: -1 Membranes: Intact Heart Rate: 130's Accelerations: Accelerations Present Decelerations: No Decelerations Short Term Variability: Present Set Builder Variability: Average (6-25) Contractions on Admission: 6-10 Minutes Apart Intensity: Mild OB - Assessment/Plan/Diagnosis Assessment Assessment: induction of labor Admission Dx 22 yo @ 39.4 GBS neg Admission Status: Inpatient Order (span 2 midnights) Reason for Inpatient Admission: IOL at 39 weeks Plan Plan: Induction Induction Method: JOE DAMICO DO Feb 04, 2023 07:34
[2023-02-04 07:47] LABS: BASOPHILS # (AUTO) 0.1 10^3/uL (0.0-0.1); BASOPHILS % (AUTO) 1 % (0-10); EOSINOPHILS # (AUTO) 0.1 10^3/uL (0.0-0.3); EOSINOPHILS % (AUTO) 1 % (0-10); HEMATOCRIT 41 % (35-52); HEMOGLOBIN 14.1 g/dL (11.5-16.0); LYMPHOCYTES # (AUTO) 2.2 10^3/uL (1.0-4.0); LYMPHOCYTES % (AUTO) 24 % (12-44); MEAN CORPUSCULAR HEMOGLOBIN 32 pg (25-34); MEAN CORPUSCULAR HGB CONC 34 g/dL (32-36); MEAN CORPUSCULAR VOLUME 94 fL (80-99); MEAN PLATELET VOLUME 9.5 fL (9.0-12.2); MONOCYTES # (AUTO) 0.9 10^3/uL (0.0-1.0); MONOCYTES % (AUTO) 10 % (0-12); NEUTROPHILS # (AUTO) 5.8 10^3/uL (1.8-7.8); NEUTROPHILS % (AUTO) 64 % (42-75); PLATELET COUNT 147 10^3/uL (130-400)
[2023-02-04] MEDS ORDERED: LACTATED RINGERS 1,000 ML 1,000 ML IV SCH (08:15)
[2023-02-04] MEDS ORDERED: fentaNYL 2 mcg/ml BUPIVA 0.125 100 ML ONE (09:07)
[2023-02-04] MEDS ORDERED: fentaNYL INJECTION 100 MCG/2 ML VIAL ONE (09:42)
[2023-02-04] MEDS ORDERED: LIDOCAINE PF 2% 5 ML VIAL ONE (09:42)
[2023-02-04] MEDS ORDERED: CATHETER FLUSH 10 ML SYR IV SCH ×2 (14:00→22:00)
[2023-02-04] MEDS: OXYTOCIN DRIP PRE-MIX 500 ML IV SCH ×2 (14:12→15:00)
[2023-02-04] MEDS ORDERED: METHYLERGONOVINE INJ 0.2 MG/ML AMP ONE (14:17)
[2023-02-04] MEDS ORDERED: NALOXONE 0.4 MG/ML 1 ML VIAL IV PRN (15:00)
[2023-02-04] MEDS ORDERED: ACETAMINOPHEN 500 MG TABLET PO PRN (15:00)
[2023-02-04] MEDS ORDERED: MEASLES, MUMPS, RUBELLA VACCINE (MMR) SQ ONE (15:00)
[2023-02-04] MEDS ORDERED: HYDROcodone/ACETAMINOPHEN 5 MG/325 MG TABLET PO PRN (15:00)
[2023-02-04] MEDS ORDERED: METHYLERGONOVINE INJ 0.2 MG/ML AMP IM ONE (15:00)
[2023-02-04] MEDS ORDERED: Tetanus/Diphtheria/Pertussis (Acell) ADULT Vaccine 0.5 ML IM ONE (15:00)
[2023-02-04] MEDS ORDERED: DIBUCAINE 1% OINTMENT 28 GM TUBE TOP PRN (15:00)
--- NOTE | 2023-02-04 15:01 | OB Labor & Delivery Record ---
L&D History Date of Service Date of Service: Feb 04, 2023 History Expected Date of Delivery: Feb 07, 2023 Gestational Age in Weeks: 39 Hx : 3 Hx Para: 1 Complications Events: Routine care Operative Indications (Cesarea: N/A-Vaginal Delivery Intrapartal Events: None L&D Stage1 Stage One Onset of Labor - Date: Feb 04, 2023 Monitors and Tracing Monitor Mode: External Heart Rate: 100 Monitor Accelerations: Uniform Station: -1 Plastic Block Boiler Reliner Variability: Average (6-10) Short Term Variability: Present Presentation: Vertex Vital Signs VS - Last 72 Hours, by Label 02/04/23 02/04/23 02/04/23 02/04/23 06:55 07:15 07:15 08:15 Temp 36.4 36.4 Pulse 72 88 88 80 Resp 18 18 18 18 B/P (MAP) 122/88 (99) 126/87 (100) 124/81 (95) Pulse Ox 99 100 100 O2 Delivery Room Air Room Air Room Air Room Air 02/04/23 02/04/23 02/04/23 02/04/23 08:30 08:45 09:00 09:15 Temp 36.7 Pulse 82 71 74 79 Resp 18 18 18 18 B/P (MAP) 123/75 (91) 128/89 (102) 131/86 (101) 135/86 (102) O2 Delivery Room Air Room Air Room Air Room Air 02/04/23 02/04/23 02/04/23 02/04/23 09:20 09:25 09:30 09:35 Pulse 83 75 74 75 Resp 18 18 18 18 B/P (MAP) 125/86 (99) 134/83 (100) 126/79 (95) 131/86 (101) Pulse Ox 100 100 100 100 O2 Delivery Room Air Room Air Room Air Room Air 02/04/23 02/04/23 02/04/23 02/04/23 09:40 09:45 09:50 09:55 Pulse 68 84 77 63 Resp 18 18 18 18 B/P (MAP) 131/85 (100) 124/76 (92) 121/78 (92) 123/72 (89) Pulse Ox 100 100 100 98 O2 Delivery Room Air Room Air Room Air Room Air 02/04/23 02/04/23 02/04/2302/04/23 10:00 10:05 10:10 10:15 Pulse 71 62 61 61 Resp 18 18 18 18 B/P (MAP) 114/79 (91) 122/78 (93) 126/74 (91) 132/75 (94) Pulse Ox 97 95 95 O2 Delivery Room Air Room Air Room Air Room Air 02/04/23 02/04/23 02/04/23 02/04/23 10:20 10:25 10:30 10:35 Pulse 53 63 62 65 Resp 18 18 18 18 B/P (MAP) 120/77 (91) 113/76 (88) 114/70 (85) 128/75 (92) O2 Delivery Room Air Room Air Room Air Room Air 02/04/23 02/04/23 02/04/23 02/04/23 10:40 10:45 11:00 11:15 Temp 36.0 Pulse 58 57 58 70 Resp 18 18 18 18 B/P (MAP) 108/55 (72) 108/62 (77) 101/57 (72) 110/63 (79) Pulse Ox 100 98 100 99 O2 Delivery Room Air Room Air Room Air Room Air 02/04/23 02/04/23 11:30 11:45 Temp 36.1 Pulse 60 62 Resp 18 18 B/P (MAP) 108/65 (79) 108/66 (80) Pulse Ox 100 100 O2 Delivery Room Air Room Air Rupture of Membranes Spontaneous Ruture of Membrane: No Amniotic Membrane Rupture Time: 0746 Amniotic Membrane Fluid Desc.: Clear Vaginal Bleeding Description: Normal Show Induction/Anesthesia Epidural Cath Placement - Time: 0936 Progress/Notes Patient admitted for IOL. AROM performed followed by pitocin augmentation and epidural placement. SHe progressed to complete and + 2 station. L&D Stage2 Stage Two Stage II Date: Feb 04, 2023 Monitors and Tracing Monitor Mode: External Heart Rate: 100 Monitor Decelerations: Variable Plastic Block Boiler Reliner Variability: Average (6-10) Short Term Variability: Present Position: Right Occiput Anterior Presentation: Vertex Cord Descript/Complications Cord Vessel Description: 3 Vessels Delivery Type Delivery Method: Spontaneous Vaginal Anterior Shoulder: Right Episiotomy/Perineal Laceration Laceraction(s)/Extensions: Yes Episiotomy Description: Periurethral Extnsion/lac, Vaginal Extension/lac, 1st degree Degree (describe repair) right periurethral and vaginal 1st degree lacerations repaired using 3-0 rapide vicyrl suture Condition of Delivery 1 minute Comment: 8 5 minute Comment: 9 Notes Live male infant weight 7lbs 11 oz Condition of Infant Condition of Infant: Living Exam: No Observed Abnormalities Resuscitation Resuscitation: N/A - Spontaneous Resp L&D Stage3 Stage Three Stage III Date: Feb 04, 2023 Pictocin Pitocin Administration mu/min: 4 Pitocin ml/hr: 4 Pitocin Administration Comment: 30 mu wide open after delivery of placenta Placenta Delivery Placenta Delivery: Spontaneous Delivery Summary Summary Estimated blood loss (mL): 400 Attending at delivery: Joe Haro DO Condition of Delivery Examined: Cervix Examined, Uterus Explored Post Hemorrhage: No Condition of Mother stable Condition of Infant (s) stable JOE HARO DO Feb 04, 2023 15:01
[2023-02-04] MEDS: IBUPROFEN 600 MG TABLET PO SCH ×2 (15:18→21:08)
[2023-02-04] MEDS: BENZOCAINE/MENTHOL (DERMOPLAST) 56 ML CAN TP PRN (15:19)
[2023-02-04] MEDS: ACETAMINOPHEN 500 MG TABLET PO SCH ×2 (15:19→21:08)
[2023-02-04] MEDS: WITCH HAZEL(TUCKS) 40 EA JAR TOP PRN (15:20)
[2023-02-04] MEDS: DOCUSATE SODIUM 100 MG CAPSULE PO SCH (21:08)
[2023-02-05 00:41] VITALS: BP 120/64
[2023-02-05] MEDS: ACETAMINOPHEN 500 MG TABLET PO SCH ×3 (03:37→17:19)
[2023-02-05] MEDS: IBUPROFEN 600 MG TABLET PO SCH ×3 (03:37→17:19)
[2023-02-05 03:48] VITALS: BP 125/73
[2023-02-05 06:52] LABS: BASOPHILS # (AUTO) 0.1 10^3/uL (0.0-0.1); BASOPHILS % (AUTO) 0 % (0-10); EOSINOPHILS % (AUTO) 1 % (0-10); HEMOGLOBIN 11.7 g/dL (11.5-16.0)
[2023-02-05 06:54] LABS: EOSINOPHILS # (AUTO) 0.2 10^3/uL (0.0-0.3); HEMATOCRIT 34 % (35-52); LYMPHOCYTES # (AUTO) 2.5 10^3/uL (1.0-4.0); LYMPHOCYTES % (AUTO) 21 % (12-44); MEAN CORPUSCULAR HEMOGLOBIN 32 pg (25-34); MEAN CORPUSCULAR HGB CONC 34 g/dL (32-36); MEAN CORPUSCULAR VOLUME 94 fL (80-99); MEAN PLATELET VOLUME 9.8 fL (9.0-12.2); MONOCYTES # (AUTO) 1.2 10^3/uL (0.0-1.0); MONOCYTES % (AUTO) 10 % (0-12); NEUTROPHILS % (AUTO) 67 % (42-75); PLATELET COUNT 132 10^3/uL (130-400)
[2023-02-05] MEDS ORDERED: PRENATAL VITAMIN TABLET PO SCH (07:00)
--- NOTE | 2023-02-05 07:26 | Postpartum Progress Note ---
Note Note Day # 2 Subjective: Patient is without complaints. Ambulating, voiding. Tolerating a regular diet without nausea or vomiting. Normal lochia. Pain is well controlled with oral pain medications. Objective: Physical Exam: General - Alert and oriented, no apparent distress Abdomen - Soft, appropriately tender to palpation, non-distended, fundus firm at umbilicus Extremities - no edema, negative Cole's bilaterally Assessment: PPD 1 NVD Plan: Routine care. Encourage breast feeding. Encourage ambulation. Ferrous sulfate supplementation. Plan for discharge today Vitals - Labs Vital Signs - I&O Vital Signs Date Time Temp Pulse Resp B/P (MAP) Pulse Ox O2 Delivery O2 Flow Rate FiO2 02/05/23 03:48 36.0 73 16 125/73 (90) 99 Room Air 02/05/23 00:41 36.4 56 16 120/64 (82) 98 Room Air 02/04/23 21:00 36.5 76 18 134/70 (91) 100 Room Air 02/04/23 18:00 36.1 62 18 110/64 (79) 97 Room Air 02/04/23 16:25 36.2 65 18 121/67 (85) 98 Room Air 02/04/23 16:10 78 18 101/64 (76) Room Air 02/04/23 15:50 65 18 123/71 (88) Room Air 02/04/23 15:25 69 18 116/73 (87) Room Air 02/04/23 15:10 65 18 116/75 (89) Room Air 02/04/23 14:55 67 18 116/72 (87) Room Air 02/04/23 14:40 71 18 119/63 (81) Room Air 02/04/23 14:25 36.7 68 18 119/58 (78) Room Air 02/04/23 14:15 86 18 123/58 (79) Room Air 02/04/23 14:00 18 144/68 (93) 100 Room Air 02/04/23 13:45 92 18 121/74 (90) 100 Room Air 02/04/23 13:15 75 18 115/65 (82) 100 Room Air 02/04/23 13:00 60 18 120/78 (92) 100 Room Air 02/04/23 12:45 35.8 89 18 103/63 (76) 100 Room Air 02/04/23 12:30 65 18 118/74 (89) 100 Room Air 02/04/23 12:15 67 18 102/66 (78) 100 Room Air 02/04/23 12:00 60 18 106/66 (79) 100 Room Air 02/04/23 11:45 36.1 62 18 108/66 (80) 100 Room Air 02/04/23 11:30 60 18 108/65 (79) 100 Room Air 02/04/23 11:15 70 18 110/63 (79) 99 Room Air 02/04/23 11:00 36.0 58 18 101/57 (72) 100 Room Air 02/04/23 10:45 57 18 108/62 (77) 98 Room Air 02/04/23 10:40 58 18 108/55 (72) 100 Room Air 02/04/23 10:35 65 18 128/75 (92) Room Air 02/04/23 10:30 62 18 114/70 (85) Room Air 02/04/23 10:25 63 18 113/76 (88) Room Air 02/04/23 10:20 53 18 120/77 (91) Room Air 02/04/23 10:15 61 18 132/75 (94) Room Air 02/04/23 10:10 61 18 126/74 (91) 95 Room Air 02/04/23 10:05 62 18 122/78 (93) 95 Room Air 02/04/23 10:00 71 18 114/79 (91) 97 Room Air 02/04/23 09:55 63 18 123/72 (89) 98 Room Air 02/04/23 09:50 77 18 121/78 (92) 100 Room Air 02/04/23 09:45 84 18 124/76 (92) 100 Room Air 02/04/23 09:40 68 18 131/85 (100) 100 Room Air 02/04/23 09:35 75 18 131/86 (101) 100 Room Air 02/04/23 09:30 74 18 126/79 (95) 100 Room Air 02/04/23 09:25 75 18 134/83 (100) 100 Room Air 02/04/23 09:20 83 18 125/86 (99) 100 Room Air 02/04/23 09:15 36.7 79 18 135/86 (102) Room Air 02/04/23 09:00 74 18 131/86 (101) Room Air 02/04/23 08:45 71 18 128/89 (102) Room Air 02/04/23 08:30 82 18 123/75 (91) Room Air 02/04/23 08:15 80 18 124/81 (95) Room Air I & O 02/05/23 07:00 Intake Total 2000 ml Balance 2000 ml Labs Laboratory Tests 02/04/23 07:35: White Blood Count 9.0, Red Blood Count 4.40, Hemoglobin 14.1, Hematocrit 41, Mean Corpuscular Volume 94, Mean Corpuscular Hemoglobin 32, Mean Corpuscular Hemoglobin Concent 34, Red Cell Distribution Width 12.0, Platelet Count 147, Mean Platelet Volume 9.5, Immature Granulocyte % (Auto) 1, Neutrophils (%) (Auto) 64, Lymphocytes (%) (Auto) 24, Monocytes (%) (Auto) 10, Eosinophils (%) (Auto) 1, Basophils (%) (Auto) 1, Neutrophils # (Auto) 5.8, Lymphocytes # (Auto) 2.2, Monocytes # (Auto) 0.9, Eosinophils # (Auto) 0.1, Basophils # (Auto) 0.1, Immature Granulocyte # (Auto) 0.1, Syphilis Total Antibody Negative 02/05/23 06:24: White Blood Count 12.0H, Red Blood Count 3.64L, Hemoglobin 11.7, Hematocrit 34L, Mean Corpuscular Volume 94, Mean Corpuscular Hemoglobin 32, Mean Corpuscular Hemoglobin Concent 34, Red Cell Distribution Width 12.0, Platelet Count 132, Mean Platelet Volume 9.8, Immature Granulocyte % (Auto) 1, Neutrophils (%) (Auto) 67, Lymphocytes (%) (Auto) 21, Monocytes (%) (Auto) 10, Eosinophils (%) (Auto) 1, Basophils (%) (Auto) 0, Neutrophils # (Auto) 8.0H, Lymphocytes # (Auto) 2.5, Monocytes # (Auto) 1.2H, Eosinophils # (Auto) 0.2, Basophils # (Auto) 0.1, Immature Granulocyte # (Auto) 0.1, Percent Immature Platelet Fraction 2.4 JOE HARO DO Feb 05, 2023 07:26
--- NOTE | 2023-02-05 07:27 | Discharge Inst-Women's Service ---
Discharge Inst-Women's Serv Depart Medication/Instructions New, Converted or Re-Newed RX: Transmitted to Pharmacy Final Diagnosis PPD 1 NVD Problems Reviewed?: Yes Consults/Follow Up Additional Follow Up: Yes Orders/Referrals Dr. Haro in 6 weeks Activity Activity: Activity as Tolerated Driving Instructions: No Driving for 1 Week NO SMOKING: NO SMOKING Nothing Inside Vagina: No Douching, No [place], No Tampons Diet Discharge Diet: No Restrictions Symptoms to Report to : Bleeding Excessive, Pain Increased, Fever Over 101 Degrees F, Vaginal Bleeding Increase, Questions/Concerns For Any Problems or Questions: Contact Your Physician JOE HARO DO Feb 05, 2023 07:27
[2023-02-05] MEDS ORDERED: ACHD5005 PO (07:29)
[2023-02-05] MEDS ORDERED: FERR325T24 PO (07:29)
[2023-02-05] MEDS ORDERED: BENZ78AE5 TP (07:29)
[2023-02-05] MEDS ORDERED: DIBU30OI TOP (07:29)
[2023-02-05] MEDS ORDERED: IBUP-844 PO (07:29)
[2023-02-05] MEDS ORDERED: FERROUS SULFATE 325 MG (IRON) TABLET PO SCH (09:00)
[2023-02-05 10:55] VITALS: BP 121/76
[2023-02-05] MEDS: DOCUSATE SODIUM 100 MG CAPSULE PO SCH (11:00)
[2023-02-05] MEDS: WITCH HAZEL(TUCKS) 40 EA JAR TOP PRN (11:23)
[2023-02-05] MEDS: BENZOCAINE/MENTHOL (DERMOPLAST) 56 ML CAN TP PRN (11:23)
--- NOTE | 2023-02-05 13:42 | Anesthesia-Regional Post-Op ---
Regional Patient Condition Mental Status: Alert, Oriented x3 Circulation: Same as Pre-Op Headache: Absent Sensation: Full Recovery Motor Block: Absent Post Op Complications Complications None Follow Up Care/Instructions Patient Instructions None needed. Anesthesia/Patient Condition Patient is doing well, no complaints, stable vital signs, no apparent adverse anesthesia problems. No complications reported per nursing. SHAUNNA SUMMERS DO Feb 05, 2023 13:42
== END 2023-02-05 17:35 | disposition home or self-care (01) | DRG 807 ==
LOC: LDRP 06:33
PROVIDERS: ADMIT Obstetrics & Gynecology; ATTEND Obstetrics & Gynecology
PROC: 10E0XZZ Delivery of Products of Conception, External Approach (ICD-10-PCS; principal; 2023-02-04)
PROC: 0HQ9XZZ Repair Perineum Skin, External Approach (ICD-10-PCS; 2023-02-04)
PROC: 0UQMXZZ Repair Vulva, External Approach (ICD-10-PCS; 2023-02-04)
PROC: 0W8NXZZ Division of Female Perineum, External Approach (ICD-10-PCS; 2023-02-04)
PROC: 10907ZC Drainage of Amniotic Fluid, Therapeutic from Products of Conception, Via Natural or Artificial Opening (ICD-10-PCS; 2023-02-04)
DX: O70.0 First degree perineal laceration during delivery (principal); Z37.0 Single live birth; O71.82 Other specified trauma to perineum and vulva; Z3A.39 39 weeks gestation of pregnancy
CPT/HCPCS: 36415; 85025; 86780; 86850; 86900; 86901